=== PATIENT | female | born 1970 | race Caucasian/White ===

== ENCOUNTER 2021-12-19 15:10 | Emergency (ER) | payer OTHER, SELFPAY ==
[2021-12-19 15:19] VITALS: BP 136/87; PULSE 69; RESP 18; TEMP 36.5; O2SAT 98; BMI 18.8
--- NOTE | 2021-12-19 15:30 | ED.GENADULT ---
HPI - General Adult General Time Seen by Provider: 15:30 Date Seen: 12/19/21 Chief complaint: Extremity Pain/Injury, Lower Stated complaint: Pain in RT leg Time Seen by Provider: 12/19/21 15:13 Source: patient History of Present Illness HPI narrative: Betzaida is a 51 year old female with past medical history of nephrolithiasis chronically on hydrochlorothiazide presents emergency department with right leg pain. Patient states she has had right leg pain over the last week and half, she has been supplementing with oral potassium due to her diuretic. She stopped taking it thinking it was due to her potassium, she was at work today and leaning forward felt a pop behind her right knee, she feels like it is more swollen than the other, she denies any bruising, she has full range of motion, no history of any DVTs or PEs in the past. No long travel. She denies any shortness of breath, chest pain or cough. She has not taken anything for it. Most of her pain is just behind her right knee, no radiation. She had her potassium checked a few weeks ago. No other concerns at this time. Related Data Allergies Allergy/AdvReac Type Severity Reaction Status Date / Time No Known Drug Allergies Allergy Verified 12/19/21 15:19 Review of Systems Status of ROS: Reports: 10 or more systems reviewed and unremarkable except as noted in History and below [facility] Social History Smoking Status: Never smoker Do you use any of these nicotine containing products: None Second hand tobacco smoke exposure: No How often do you have a drink containing alcohol: 2-4 times a month How many standard drinks containing alcohol do you have on a typical day: 1 or 2 How often do you have six or more drinks on one occasion: Never AUDIT-C Alcohol total score: 2 Non-prescribed substance use: denies use service: No Exam Narrative: Exam Narrative: General: No obvious distress sitting comfortably HEENT: Pupils equal round reactive to light, extraocular muscles intact Neck: Supple, full range of motion Lungs: Clear to auscultation bilaterally Heart: Normal sinus rhythm S1-S2 Abdomen: Soft nontender Muscle skeletal: Right lower extremity, tender to palpation the posterior knee, nontender to palpation the medial and lateral joint line, minimal tenderness to the calf, no palpable cord, minimal swelling to the posterior knee, active extension and flexion, CMS intact Neuro: Gait within normal limits, alert awake and oriented x3. Const: Vital Signs, click to edit/add: Vital Signs - 24 hr 12/19/21 15:19 Temperature 97.7 F Pulse Rate [Pulse Oximeter] 69 Respiratory Rate 18 Blood Pressure [Ri ght Upper Arm] 136/87 Pulse Oximetry 98 Oxygen Delivery Me thod Room Air Course Course Hospital Course: 3:30 PM: AIDET performed. vitals are normal. Workup will include venous ultrasound right lower extremity to rule out DVT or popliteal cyst, patient denies any respiratory complaints, will check her potassium as well. Differential diagnosis include fracture, dislocation, bursitis, tendonitis, Lorenzo cyst, deep vein thrombosis, cellulitis, abscess as well as other etiologies. Reevaluation(s) Reevaluation #1: Patient updated on her imaging and lab results, imaging showed 1. Negative for acute DVT in the right lower extremity. 2. Small elongated fluid collection along the superomedial aspect of the right knee. Potassium was within normal limits. Patient is doing well, plan to discharge. Chuck wrap applied for support, she will follow up with her primary care provider over the next 7-10 days, consideration for further imaging with MRI if no improvement with her symptoms. All questions answered Time: 17:12 Vital Signs Vital signs: Initial Vital Signs Temperature 97.7 F 12/19/21 15:19 Temperature Source Temporal Artery Scan 12/19/21 15:19 Pulse Rate 69 12/19/21 15:19 Pulse Rhythm 12/19/21 15:19 Respiratory Rate 18 12/19/21 15:19 Blood Pressure 136/87 12/19/21 15:19 Blood Pressure Mean 103 12/19/21 15:19 Pulse Oximetry 98 12/19/21 15:19 Oxygen Delivery Method 12/19/21 15:19 Vital Signs Temperature 97.7 F 12/19/21 15:19 Pulse Rate 69 12/19/21 15:19 Respiratory Rate 18 12/19/21 15:19 Blood Pressure 136/87 12/19/21 15:19 Pulse Oximetry 98 12/19/21 15:19 Oxygen Delivery Method 12/19/21 15:19 Temperature 97.7 F 12/19/21 15:19 Pulse Rate 69 12/19/21 15:19 Respiratory Rate 18 12/19/21 15:19 Blood Pressure 136/87 12/19/21 15:19 Pulse Oximetry 98 12/19/21 15:19 Oxygen Delivery Method 12/19/21 15:19 Medical Decision Making Lab Data Labs: Lab Results 12/19/21 Range/Units 15:57 Sodium 142 (135-149) mmol/L Potassium 4.1 (3.6-5.1) mmol/L Chloride 105 (96-114) mmol/L Carbon Dioxide 30 (20-32) mmol/L BUN 18 (7-30) mg/dL Creatinine 0.7 (0.5-1.5) mg/dL Estimated Creat Clear 81.24 Estimated GFR 105 ml/min Glucose 88 (60-115) mg/dL Calcium 9.4 (8.4-10.6) mg/dL Discharge Plan Discharge Clinical Impression: Knee pain, right Patient Disposition: Home, Self-Care Condition: Improved Instructions: R.I.C.E. Treatment (ED) Additional Instructions: To pick up operator a Neoprene knee support and to continue with rest, ice, elevation and compression. To follow up with primary care provider in the next 7-10 days, if no improvement consideration for further imaging with MRI on outpatient basis. Follow Up/Referrals: Treasure Ayala MD [Primary Care Provider] - Stand Alone Forms: [email or web address] Info Instructions
--- NOTE | 2021-12-19 15:36 | CRLHL7_ITS ---
For Patients: As a result of the Century Cures Act, medical imaging exams and procedure reports are released immediately into your electronic medical record. You may view this report before your referring provider. If you have questions, please contact your health care provider. INDICATION: Leg pain and swelling. COMPARISON: None. TECHNIQUE: A compression venous ultrasound exam was performed of the right lower extremity using lo-scale imaging, color Doppler and spectral Doppler analysis. FINDINGS: Sonographic imaging of the right lower extremity demonstrates normal compressibility and color Doppler venous blood flow within the common femoral vein, deep femoral vein, and the proximal greater saphenous vein. Within the thigh, the femoral vein is patent and compressible. At a lower level, the popliteal, peroneal, and posterior tibial veins also show normal compressibility and color Doppler venous blood flow. There is a 2.5 x 0.2 x 1.5 cm thin elongated fluid collection along the superomedial aspect of the right knee. Limited imaging of the contralateral groin demonstrates a normal spectral waveform and color Doppler venous blood flow within the left common femoral vein. IMPRESSION: 1. Negative for acute DVT in the right lower extremity. 2. Small elongated fluid collection along the superomedial aspect of the right knee. Dictated by Emmanuelle Acuña MD @ 12/19/2021 4:42:10 PM (Electronically Signed)
[2021-12-19 16:45] LABS: Chloride* 105 mmol/L (96-114); Potassium* 4.1 mmol/L (3.6-5.1); Sodium* 142 mmol/L (135-149)
[2021-12-19 16:48] LABS: Blood Urea Nitrogen* 18 mg/dL (7-30); Carbon Dioxide* 30 mmol/L (20-32); Creatinine* 0.7 mg/dL (0.5-1.5); Est. Creatinine Clearance* 81.24; Estimated Glomerular Filt Rate 105 ml/min; Glucose* 88 mg/dL (60-115)
[2021-12-19 16:49] LABS: Calcium* 9.4 mg/dL (8.4-10.6)
== END 2021-12-19 18:06 | disposition home or self-care (01) ==
PROVIDERS: Emergency Provider Student in an Organized Health Care Education/Training Program; PCP Family Medicine
DX: M79.604 Pain in right leg (principal)
CPT/HCPCS: 36415; 80048; 93971; 99283; 99284

== ENCOUNTER 2021-12-31 07:12 | Outpatient (CLI) | payer OTHER, SELFPAY ==
--- NOTE | 2021-12-31 08:38 | W.ANESCHARGE ---
Anesthesia Charges Start Date/Time Anesthesia Start Date: 12/31/21 Anesthesia Start Time: 08:38 Stop Date/Time Anesthesia Stop Date: 12/31/21 Anesthesia Stop Time: 08:32 Summary Emergency: No
--- NOTE | 2021-12-31 08:52 | W.ANESCHARGE ---
Anesthesia Charges Start Date/Time Anesthesia Start Date: 12/31/21 Anesthesia Start Time: 08:08 Stop Date/Time Anesthesia Stop Date: 12/31/21 Anesthesia Stop Time: 08:32 Summary Emergency: No
--- NOTE | 2021-12-31 09:30 | W.ANESCHARGE ---
Anesthesia Charges Start Date/Time Anesthesia Start Date: 12/31/21 Anesthesia Start Time: 08:08 Stop Date/Time Anesthesia Stop Date: 12/31/21 Anesthesia Stop Time: 08:32 Summary Emergency: No
== END 2021-12-31 07:13 | disposition home or self-care (01) ==
LOC: OP CLINIC 07:13
PROVIDERS: PCP Family Medicine; Visit Provider Internal Medicine Gastroenterology
DX: Z12.11 Encounter for screening for malignant neoplasm of colon (principal); R19.7 Diarrhea, unspecified
CPT/HCPCS: 00811; 45380; 88305; J2704